=== PATIENT | female | born 1995 | race Caucasian/White ===

== ENCOUNTER 2020-06-08 00:47 | Inpatient (IN) ==
[~2020-06-08 00:47] MED LIST: *HR* Nalbuphine 10 MG/ML AMPUL IV PRN; Famotidine 20 MG/2 ML VIAL IVP PRN; Metoclopramide 10 MG/2 ML VIAL IVP PRN; Ringers Solution, Lactated 1,000 ML ONE
[2020-06-08 01:20] LABS: Basophils # 0.1 K/mcL (0.0-0.2); Basophils % 0.4 %; Eosinophils # 0.1 K/mcL (0.0-0.6); Eosinophils % 1.1 %; Hematocrit 32.7 % (35.3-44.9); Immature Granulocytes % 0.9 % (0-4); Mean Corpuscular HGB Conc 33.6 g/dL (31.6-35.5); Mean Corpuscular Volume 92.1 fL (83.0-100.0); Mean Platelet Volume 11.4 fL (9.4-12.4); Monocytes # 1.2 K/mcL (0.0-1.3); Monocytes % 9.3 %; Neutrophils # 8.9 K/mcL (1.6-8.9); Platelet Count 236 K/mcL (140-400); Red Blood Count 3.55 M/mcL (3.82-4.97); Red Cell Distribution Width 12.6 % (11.5-14.5); Segmented Neutrophils % 72.3 %; White Blood Count 12.4 K/mcL (4.3-11.1)
[2020-06-08 02:05] LABS: Amphetamine Screen,Urine Negative ng/mL (Cutoff=1000); Barbiturate Screen,Urine Negative ng/mL (Cutoff=200); Benzodiazepines Screen,Urine Negative ng/mL (Cutoff=200); Cannabinoid Screen,Urine Positive ng/mL (Cutoff = 50); Cocaine Screen,Urine Negative ng/mL (Cutoff= 300); Opiate Screen,Urine Negative ng/mL (Cutoff=300); Phencyclidine Screen,Urine Negative ng/mL (Cutoff=25)
[2020-06-08] MEDS: miSOPROStoL 25 MCG TABLET PO PRN ×3 (02:09→11:48)
[2020-06-08 02:27] LABS: Hepatitis B Surface Antibody > 850.00 mIU/mL
[2020-06-08 02:31] LABS: Rubella IgG Antibody POSITIVE (POSITIVE); Varicella Zoster IgG Antibody Positive
[2020-06-08 02:52] LABS: Influenza A PCR Negative (Negative); Influenza B PCR Negative (Negative); Resp. Syncytial Virus PCR Negative (Negative)
[2020-06-08 02:55] LABS: SARS-CoV-2 by PCR (In House) Negative (Negative)
[2020-06-08 03:07] LABS: Hepatitis C Virus Antibody Nonreactive (Nonreactive)
[2020-06-08] MEDS ORDERED: EPHEDrine 50 MG/ML VIAL IVP PRN ×2 (05:30→07:15)
[2020-06-08] MEDS ORDERED: Epidural Premix (fent/bupiv) 110 ML EP SCH (07:15)
[2020-06-08] MEDS ORDERED: *HR* FentaNYL (PF) 100 MCG/2 ML VIAL EP ONE (07:15)
[2020-06-08] MEDS ORDERED: Ropivacaine/PF 0.2% 20 ML VIAL EP ONE (07:15)
[2020-06-08] MEDS ORDERED: *HR* FentaNYL (PF) 100 MCG/2 ML VIAL ONE ×3 (07:28→21:34)
[2020-06-08] MEDS ORDERED: Ropivacaine/PF 0.2% 20 ML VIAL ONE (07:28)
[2020-06-08] MEDS: Ringers Solution, Lactated 1,000 ML IVC SCH ×3 (10:09→16:48)
[2020-06-08] MEDS: Epidural Premix (fent/bupiv) 110 ML EP SCH ×2 (10:36→18:02)
[2020-06-08] MEDS ORDERED: EPHEDrine 50 MG/ML VIAL ONE (10:40)
[2020-06-09] MEDS ORDERED: *HR* FentaNYL (PF) 100 MCG/2 ML VIAL ONE ×4 (04:02→21:34)
[2020-06-09] MEDS ORDERED: Oxytocin 20 units/ LR 1000 mL 20 UNIT/1,000 ML BAG IVC SCH (04:15)
[2020-06-09] MEDS ORDERED: Ondansetron 4 MG/2 ML VIAL ONE ×2 (11:56→22:28)
[2020-06-09] MEDS: Ringers Solution, Lactated 1,000 ML IVC SCH (11:59)
[2020-06-09] MEDS: Epidural Premix (fent/bupiv) 110 ML EP SCH ×2 (12:01→15:19)
[2020-06-09] MEDS ORDERED: D5% in Lactated Ringers 1,000 ML IVC SCH (14:00)
[2020-06-09] MEDS ORDERED: Ropivacaine/PF 0.2% 20 ML VIAL ONE (21:34)
[2020-06-10] MEDS: Epidural Premix (fent/bupiv) 110 ML EP SCH ×2 (01:29→07:32)
[2020-06-10] MEDS ORDERED: *HR* FentaNYL (PF) 100 MCG/2 ML VIAL ONE ×4 (03:05→17:08)
[2020-06-10] MEDS ORDERED: Ondansetron ODT 4 MG TAB.RAPDIS SL PRN (19:20)
[2020-06-10] MEDS ORDERED: Benzocaine/Menthol 56 GM AEROSOL SPRAY TP PRN (20:16)
[2020-06-10] MEDS ORDERED: Oxytocin 20 units/ LR 1000 mL 20 UNIT/1,000 ML BAG IVC SCH (20:16)
[2020-06-10] MEDS ORDERED: Lidocaine/EPI 1:100k 1% 20 ML VIAL INFILT SCH (20:16)
[2020-06-10] MEDS ORDERED: Ibuprofen 600 MG TABLET PO PRN (20:16)
[2020-06-10] MEDS ORDERED: Acetaminophen 325 MG TABLET PO PRN (20:16)
[2020-06-10] MEDS ORDERED: Etonogestrel 68 MG IMPLANT IL SCH (20:16)
[2020-06-10] MEDS ORDERED: Lidocaine/EPI 1:100k 1% 50 ML VIAL INFILT ONE (20:45)
[2020-06-10 21:36] VITALS: BP 120/74
== END 2020-06-10 22:15 | disposition home or self-care (01) | DRG 560 ==
LOC: 1NENULAB
PROVIDERS: ADMIT Advanced Practice Midwife; ATTEND Advanced Practice Midwife